=== PATIENT | female | born 1970 ===

== ENCOUNTER 2023-07-28 09:02 | Outpatient (CLI) | payer OTHER | END 2023-07-28 09:18 | disposition home or self-care (01) | LOC: SONOGRAMA 09:02 | PROVIDERS: ATTEND Obstetrics & Gynecology | DX: N84.0 Polyp of corpus uteri (principal) ==

== ENCOUNTER 2023-10-27 05:00 | Day surgery (SDC) | payer OTHER ==
[2023-10-21 08:22] LABS: HEMATOCRIT 41.5 % (36.0-45.00); HEMOGLOBIN 13.9 g/dL (12.0-15.00); MEAN CORPUSCULAR HEMOGLOBIN 29.1 pg (27.00-32.0); MEAN CORPUSCULAR HGB CONC 33.4 g/dl (32.0-36.0); PLATELET COUNT 314 K/uL (150-450); RED BLOOD COUNT 4.77 M/uL (4.00-6.00); RED CELL DISTRIBUTION WIDTH 14.6 % (11.5-14.5)
[2023-10-21 09:08] LABS: PH,URINE 5.5 (5.0-8.0); URINE APPEARANCE Clear; URINE BILIRRUBIN Negative (NEGATIVE); URINE BLOOD Large; URINE COLOR Yellow; URINE GLUCOSE Negative (NEGATIVE); URINE LEUKOCYTE Negative; URINE NITRATE Negative; URINE PROTEIN Negative (NEGATIVE); URINE UROBILINOGEN 0.2 E.U./dl
[2023-10-21 09:12] LABS: URINE BACTERIA 381.6 uL (0.0-1933); URINE EPITHELIAL CELLS 11.7 uL (0.0-38.8); URINE RBC 49.2 uL (0.0-20.8); URINE WBC 7.2 uL (0.0-23.2)
[2023-10-21 09:14] LABS: INR 0.97; PARTIAL THROMBOPLASTIN TIME 30.8 SECONDS (22.0-34.0); PROTHROMBIN TIME 10.2 SECONDS (9.0-11.5)
[2023-10-21 09:44] LABS: ALBUMIN 3.9 gm/dL (3.4-5.0); BILIRUBIN TOTAL 0.55 mg/dL (0.3-1.2); CALCIUM 9.4 mg/dL (8.5-10.1); CREATININE SERUM 0.95 mg/dL (0.55-1.02); GFR 61.53; GLOBULINA 3.3 G/DL (2.4-3.5); POTASSIUM 3.77 mEq/L (3.5-5.1); TOTAL PROTEIN 7.2 gm/dL (6.4-8.2)
[~2023-10-27 05:00] MED LIST: DIOVAN320 MG PO; HYDROCHLOROTHIA25 MG PO; KAPSPARGO SPRI100 MG PO; SYNTHROID88 MCG PO
[2023-10-27] MEDS ORDERED: POVIDONE-IODINE 118 ML BOTT TOP ONE ×2 (07:03→08:30)
[2023-10-27] MEDS ORDERED: KETOROLAC TROMETHAMINE 30 MG VIAL IU ONE (09:15)
== END 2023-10-27 13:10 | disposition home or self-care (01) ==
LOC: CIR.AMB 05:00
PROVIDERS: ATTEND Obstetrics & Gynecology
DX: D25.0 Submucous leiomyoma of uterus (principal); N95.0 Postmenopausal bleeding; I10 Essential (primary) hypertension; E78.5 Hyperlipidemia, unspecified; E03.9 Hypothyroidism, unspecified; Z20.822 Contact with and (suspected) exposure to COVID-19